=== PATIENT | male | born 1985 | race Caucasian/White ===

== ENCOUNTER 2019-10-20 14:02 | Emergency (ER) | payer OTHER, SELFPAY ==
[2019-10-20 14:14] VITALS: BP 127/85; PULSE 111; RESP 20; TEMP 36.9; O2SAT 100
--- NOTE | 2019-10-20 14:57 | ED.GENADULT ---
HPI - General Adult General Chief complaint: Upper Respiratory Infection Stated complaint: headache/Neck pain/eye pain/fatigue Time Seen by Provider: 10/20/19 14:57 Source: patient and RN notes reviewed Mode of arrival: ambulatory Limitations: no limitations History of Present Illness HPI narrative: 33-year-old male presents with complaints of fatigue, upper respiratory infection, facial congestion, facial pain, clogged ears, cough, and intermittent headaches (not the worst of his life) for the past 14 days. Zyrtec daily, Sudafed, and Flonase with little to no relieg. No facial swelling. Dry cough/intermittent productive cough (yellow phlegm). Nasal congestion and rhinorrhea. No chest pain or shortness of breath. No exacerbating factors. Denies fever or chills. Denies nausea, vomiting, and abdominal pain. Tolerating po intake well. Remains active. Some parts of this dictation were generated by voice recognition software and may contain typographical and/or grammatical inaccuracies. Related Data Home Medications Medication Instructions Recorded Confirmed cetirizine [Zyrtec] 10 mg PO DAILY 10/20/19 10/20/19 fluticasone propionate [Flonase 1 spray INTRANASAL BID 10/20/19 10/20/19 Allergy Relief] pseudoephedrine HCl [Sudafed 12 120 mg PO Q12H 10/20/19 10/20/19 Hour] Allergies Allergy/AdvReac Type Severity Reaction Status Date / Time No Known Allergies Allergy Unknown Verified 10/20/19 14:24 Review of Systems Review of Systems: Narrative: CONSTITUTIONAL: Complains of fatigue. Denies fever, chills, sweats. EYES: Denies visual changes, redness, discharge. ENT: Complains of rhinorrhea, congestion, clogged ears, facial pressure and congestion. Denies otalgia, sore throat. CARDIOVASCULAR: Denies chest pain, palpitations, edema. RESPIRATORY: Denies dyspnea, wheezing. Complains of dry cough/intermittent productive. GASTROINTESTINAL: Denies abdominal pain, nausea, vomiting, diarrhea. GENITOURINARY: Denies dysuria, hematuria, abnormal discharge. SKIN: Denies rash or itching. MUSCULOSKELETAL: Denies acute back pain, joint pain, or myalgia. NEUROLOGIC: Denies numbness or focal weakness. Complains of intermittent RUSSELL. PSYCHIATRIC: Denies anxiety or depression. All systems reviewed & are unremarkable except as noted in HPI and below. [facility] Past Medical History Medical History (Updated 10/21/19 @ 00:01 by Gina Pearce) Bone spur Left heel Surgical History Surgical History (Updated 10/20/19 @ 15:05 by ANDI Calhoun) History of vasectomy Status post left foot surgery Family History Family History Mother Carcinoma of colon Other Family history of malignant neoplasm Social History Social History (Updated 10/20/19 @ 15:06 by ANDI Calhoun) Smoking status: Never smoker Second hand tobacco smoke exposure: No Alcohol intake: current Substance use: never Living arrangements: with family Occupation/Education: occupation Gender identity (if verbalized by the patient): Male Comments At time of signature, agree with nurse past medical, surgical, social, and family history. There is no relevant family history pertinent to the presenting complaint. Exam Narrative: Exam Narrative: GENERAL: This is a well-nourished, well-developed patient, in no apparent distress. Talks in full sentences and ambulates with steady gait without dyspnea. HEAD: normocephalic, atraumatic. EYES: PERRL. Sclera clear/white. Vision is grossly intact. EARS: External ears normal, auditory canals clear and without drainage, TMs normal without perforation. Hearing grossly intact. NOSE: External nose normal with no obvious nasal discharge, nares with mild-moderate redness and enlarged turbinates, LT worse. Clear rhinorrhea. SINUSES: Moderate tenderness upon palpation to maxillary sinus. THROAT: Mucous membranes moist, posterior pharynx with
== END 2019-10-20 15:22 | disposition home or self-care (01) ==
PROVIDERS: Emergency Provider Nurse Practitioner Family
DX: J32.9 Chronic sinusitis, unspecified (principal); Z98.52 Vasectomy status
CPT/HCPCS: 99213; G0463

== ENCOUNTER 2022-04-02 20:31 | Emergency (ER) | payer BC, SELFPAY ==
--- NOTE | ~2022-04-02 | CT_ITS ---
EXAMINATION: CT abdomen pelvis wo con DATE: 04/02/2022 21:14 INDICATION: Left flank pain. TECHNIQUE: Computed tomography (CT) of the abdomen and pelvis was performed without intravenous contr ast. Automated exposure control and iterative reconstruction technique were employed. The dose-length product was 319.79 mGy-cm. COMPARISON: None. FINDINGS: The visualized portions of the lung bases are clear without pneumonia or pleural effusion. The heart size is normal. No pericardial effusion. The liver, spleen, gallbladder, pancreas, and adre nal glands are normal. There is a 3.0 cm cyst in right kidney. There is mild left hydronephrosis and hydroureter. There is a 2 mm stone at left ureterovesicular junction. There are no dilated loops of b owel. The appendix is normal. There are no pathologically enlarged lymph nodes. There is no free intr aperitoneal fluid. There is mild thoracolumbar spondylosis. IMPRESSION: 1. 2 mm stone at left ureterovesicular junction with mild left hydronephrosis and hydroureter. Reviewed, dictated and finalized at location A. IMPRESSION: 1. 2 mm stone at left ureterovesicular junction with mild left hydronephrosis a nd hydroureter.
[2022-04-02 20:48] VITALS: BP 124/84; PULSE 79; RESP 22; O2SAT 100
--- NOTE | 2022-04-02 20:57 | ED.GENADULT ---
HPI - General Adult General Chief complaint: Abdominal Pain Stated complaint: lt flank pain Time Seen by Provider: 04/02/22 20:52 Source: RN notes reviewed History of Present Illness HPI narrative: Patient presents emergency department from home for left-sided flank pain. Patient states pain began suddenly approximately 30 minutes ago. The pain is located in the left flank and radiates to the left side the abdomen described as sharp and stabbing associated with nausea. The patient denies any fevers or chills chest pain shortness of breath vomiting diarrhea or any other symptoms. States he is playing tennis when the pain began he thought he had pulled a muscle in his back and did take a muscle relaxer denies any previous history of kidney stones Related Data Home Medications Medication Instructions Recorded Confirmed cetirizine 10 mg tablet 10 mg PO DAILY PRN 04/03/21 04/03/21 naphazoline 0.025 %-pheniramine 1 drp EACH EYE QID PRN 04/03/21 04/03/21 0.3 % eye drops (Eye Allergy Relief (naphazoline-pheniramine)) oxymetazoline 0.05 % nasal mist 2 spray intranasal Q12H PRN 04/03/21 04/03/21 (Nasal [place] 12 Hour (oxymetazoline)) pseudoephedrine HCl 120 mg 120 mg PO Q12H 04/03/21 04/03/21 tablet,extended release (Nasal Decongestant (pseudoephedrine)) Allergies Allergy/AdvReac Type Severity Reaction Status Date / Time grass pollen Allergy Unknown Verified 04/03/21 09:09 tree and shrub pollen Allergy Unknown Verified 04/03/21 09:10 Review of Systems Review of Systems: Gen.: Denies fevers or chills ENT: Denies congestion Respiratory: Denies shortness of breath or cough CV: Denies chest pain or palpitations GI: See HPI denies burning, urgency, frequency or hematuria Musculoskeletal: Denies back pain or muscle pain Neuro: Denies numbness, tingling, weakness or focal weakness Skin: Denies rash Except as documented, all other systems reviewed and negative [facility] Past Medical History Medical History Bone spur Left heel Seasonal allergies Surgical History Surgical History History of vasectomy Status post left foot surgery Family History Family History Mother Carcinoma of colon Other Family history of malignant neoplasm Social History Social History Smoking status: Never smoker Second hand tobacco smoke exposure: No Alcohol intake: current Substance use: never Gender identity (if verbalized by the patient): Male Exam Narrative: APPEARANCE: Moderate distress from pain, nontoxic, resting in bed EYES: EOMI HEENT: Normocephalic, atraumatic, OMM RESPIRATORY: No respiratory distress Clear to auscultation bilaterally with no rhonchi wheezing or rales. CARDIOVASCULAR: Regular rate and rhythm without murmurs rubs or gallops. ABDOMINAL: Soft, nondistended tender palpation left lower quadrant no tenderness left upper quadrant, right upper quadrant right lower quadrant no rebound or guarding MUSCULOSKELETAl: Moves all extremities. No clubbing, cyanosis or edema. NEURO: Awake and alert. Following commands, speech normal, no focal deficits SKIN:: Warm, dry. No rashes lesions or abrasions PSYCHIATRIC: Normal affect/mood, Course Course Emergency Course: Patient states he is feeling much better at this time Discussed with patient results of workup and diagnosis. Discussed need for follow-up with primary care, proper use of medication, and reasons to return to the emergency department. Patient understands and agrees to current treatment plan Vital Signs Vital signs: Vital Signs Pulse Rate 79 04/02/22 20:48 Respiratory Rate 22 H 04/02/22 20:48 Blood Pressure 124/84 04/02/22 20:48 Pulse Oximetry 100 04/02/22 20:48 Oxygen Delivery Room Air 04/02/22 20:48 Pul
[2022-04-02] MEDS: ONDANSETRON INJ 4 MG/2 ML VIAL IV PUSH (21:30)
[2022-04-02] MEDS: KETOROLAC 30 MG/ML VIAL (*BKC) IV PUSH (21:30)
[2022-04-02] MEDS: SODIUM CHLORIDE 0.9% IV 1,000 ML 999 ML IV CONT (21:31)
[2022-04-02 21:34] LABS: Basophils Percent Auto 0.2 % (0.2-1.2); Eosinophils Absolute Auto 0.2 K/mm3 (0-0.3); Eosinophils Percent Auto 1.5 % (0-4.4); Hematocrit 42.8 % (42.0-52.0); Hemoglobin 14.9 g/dL (14.0-18.0); Immature Granulocyte Absolute 0.04 K/mm3 (0.00-0.031); Immature Granulocyte Percent A 0.4 % (0-0.5); Lymphocytes Absolute Auto 1.97 K/mm3 (0.9-3.2); Lymphocytes Percent Auto 18.8 % (18.3-44.2); Mean Corpuscular HGB Conc 34.8 g/dl (32-36); Mean Corpuscular Hemoglobin 30.4 pg (26-34); Mean Corpuscular Volume 87.3 fl (80-100); Mean Platelet Volume 8.9 fl (7.4-10.4); Monocytes Absolute Auto 0.6 K/mm3 (0.1-0.6); Monocytes Percent Auto 5.4 % (2.6-8.5); Neutrophils Absolute Auto 7.7 K/mm3 (1.3-6.7); Neutrophils Percent Auto 73.7 % (45.5-73.1); Platelet Count Result 309 k/mm3 (150-375); Red Cell Distribution Width 11.9 % (11.5-14.5); White Blood Count 10.5 K/mm3 (4.5-10.0)
[2022-04-02 21:35] LABS: Appearance Urine Clear (Clear); Bilirubin Urine Negative (Negative); Blood Urine 2+ (Negative); Color Urine Yellow (Yellow); Glucose Urine UA Negative (Negative); Ketones Urine Negative (Negative); Leukocyte Esterase Ur Negative LEU/UL (Negative); Nitrate Urine Negative (Negative); Protein Urine 2+ mg/dL (Negative); Specific Grav Ur >= 1.030 (1.001-1.035); Urobilinogen Urine 0.2 mg/dL (<2.0); pH Urine 5.5 (5.0-9.0)
[2022-04-02] MEDS: MORPHINE SULFATE (*CRX) 4 MG/ML INJ IV PUSH (21:42)
[2022-04-02] MEDS: TAMSULOSIN HCL 0.4 MG CAPSULE PO (21:43)
[2022-04-02 21:44] LABS: Alanine Aminotransferase 29 U/L (6-50); Albumin Level 5.1 g/dL (3.5-5.1); Alkaline Phosphatase 71 U/L (38-126); Anion Gap 12 mmol/L (8-16); Aspartate Amino Transferase 28 U/L (17-59); Bilirubin,Total 0.5 mg/dL (0.2-1.3); Blood Urea Nitrogen 17 mg/dL (9-20); Carbon Dioxide 28 mmol/L (22-30); Chloride 101 mmol/L (98-107); Estimated CRCL calculation 59 ml/min; Estimated Glomerular Filt Rate 57; Glucose 131 mg/dL (65-110); Lipase 120 U/L (23-300); Potassium 3.6 mmol/L (3.4-5.0); Sodium 141 mmol/L (137-145)
[2022-04-02 21:49] LABS: Calcium Oxalate Crystals Urine Many /hpf; Mucus Urine Heavy /lpf; Squamous Epithelial Cell Urine Rare /hpf (Few); WBC Urine 0-3 /hpf
[2022-04-02 21:53] LABS: Add Urine Microscopic? YES
[2022-04-02 23:30] VITALS: BP 131/86; PULSE 86; RESP 16; O2SAT 100
== END 2022-04-02 23:30 | disposition home or self-care (01) ==
PROVIDERS: Emergency Provider Emergency Medicine
DX: N13.2 Hydronephrosis with renal and ureteral calculous obstruction (principal)
CPT/HCPCS: 36415; 74176; 80053; 81001; 83690; 85025; 96361; 96374; 96375; 99284; A9270; J1885; J2270; J2405; J7030

== ENCOUNTER 2022-08-28 09:25 | Emergency (ER) | payer OTHER, SELFPAY ==
[2022-08-28] VITALS (10 sets, daily range): BP systolic 122–145; BP diastolic 81–125; PULSE 80; RESP 18; TEMP 36.3; O2SAT 100
--- NOTE | ~2022-08-28 | CT_ITS ---
EXAMINATION: CT abdomen pelvis wo con DATE: 08/28/2022 10:09 INDICATION: Right lower quadrant abdominal pain. Right flank pain. TECHNIQUE: Computed tomography (CT) of the abdomen and pelvis was performed without intravenous contr ast. Automated exposure control and iterative reconstruction technique were employed. The dose-length product was 325.69 mGy-cm. COMPARISON: CT abdomen and pelvis 04/02/2022 FINDINGS: The visualized portions of the lung bases are clear without pneumonia or pleural effusion. The heart size is normal. No pericardial effusion. The liver, gallbladder, spleen, pancreas, adrenal glands, and left kidney are normal. There is a 2.6 cm cyst in right kidney. There is mild right hydro nephrosis and hydroureter. There is a 1 mm stone in distal right ureter. There are no dilated loops o f bowel. The appendix is normal. There are no pathologically enlarged lymph nodes. There is no free i ntraperitoneal fluid. There is mild thoracic spondylosis. IMPRESSION: 1. 1 mm stone in distal right ureter with mild right hydronephrosis and hydroureter. Reviewed, dictated and finalized at location A. NING AND DEVELOPMENT ANALYST IMPRESSION: 1. 1 mm stone in distal right ureter with mild right hydronephrosis and hydrour eter.
--- NOTE | 2022-08-28 09:41 | ED.GENADULT ---
HPI - General Adult General Chief complaint: Abdominal Pain Stated complaint: back pain Time Seen by Provider: 08/28/22 09:26 History of Present Illness HPI narrative: 36-year-old male with history of kidney stones presented to the emerged department for evaluation of back pain and flank pain. Patient states over the last few days he has had some lower back pain. Patient reports that approximately 7 AM this morning he had intense right flank pain that does radiate to his right lower quadrant. Patient states the pain did radiate down to his testicles. Patient does report associated nausea and vomiting did have an episode of diarrhea. Patient denies any other significant past medical history. Patient denies any previous abdominal surgeries. Related Data Home Medications Medication Instructions Recorded Confirmed cetirizine 10 mg tablet 10 mg PO DAILY PRN 04/03/21 04/03/21 naphazoline 0.025 %-pheniramine 1 drp EACH EYE QID PRN 04/03/21 04/03/21 0.3 % eye drops (Eye Allergy Relief (naphazoline-pheniramine)) oxymetazoline 0.05 % nasal mist 2 spray intranasal Q12H PRN 04/03/21 04/03/21 (Nasal [place] 12 Hour (oxymetazoline)) pseudoephedrine HCl 120 mg 120 mg PO Q12H 04/03/21 04/03/21 tablet,extended release (Nasal Decongestant (pseudoephedrine)) Allergies Allergy/AdvReac Type Severity Reaction Status Date / Time grass pollen Allergy Unknown Verified 04/03/21 09:09 tree and shrub pollen Allergy Unknown Verified 04/03/21 09:10 Review of Systems Review of Systems: CONSTITUTIONAL: Denies fever, chills, or sweats. EYES: Denies visual changes, redness, or discharge. ENT: Denies rhinorrhea, congestion, sore throat, or otalgia. CARDIOVASCULAR: Denies chest pain, palpitations, or edema. RESPIRATORY: Denies cough or dyspnea. GASTROINTESTINAL: See HPI GENITOURINARY: Denies dysuria or hematuria. SKIN: Denies rash or itching. MUSCULOSKELETAL: Denies back pain, joint pain, or myalgia. NEUROLOGIC: Denies headache, numbness, or weakness. [facility] Past Medical History Medical History Bone spur Left heel Seasonal allergies Surgical History Surgical History History of vasectomy Status post left foot surgery Family History Family History Mother Carcinoma of colon Other Family history of malignant neoplasm Social History Social History Smoking status: Never smoker Second hand tobacco smoke exposure: No Alcohol intake: current Substance use: never Gender identity (if verbalized by the patient): Male Exam Narrative: APPEARANCE: Uncomfortable appearing due to pain HEAD: normocephalic, atraumatic. EYES: PERRLA/EOMI, conjunctivae clear. NOSE: Normal no drainage THROAT: Pharynx clear, no exudate. NECK: Supple. No adenopathy, no masses. RESPIRATORY: Airway patent, respirations nonlabored. Clear to auscultation bilaterally, no rales, rhonchi, wheezing. CARDIOVASCULAR: Regular rate and rhythm without murmurs rubs or gallops. ABDOMINAL: Right flank pain, right lower quadrant pain with only minimal tenderness to palpation. MUSCULOSKELETAL: Moves all extremities. Strength/ROM intact, No edema, No calf tenderness. NEURO: Alert. Cranial nerves II through XII intact. Grossly intact SKIN: Warm, dry. Normal Color Course Course Emergency Course: Patient was provided IV fluids and IV medications for pain control and for nausea control. UA was ordered to evaluate for hematuria. Baseline labs were ordered. CT scan without contrast was ordered due to concern for ureteral calculi. Differential diagnosis does also include appendicitis, colitis, diverticulitis, UTI. CT scan did show evidence of a 1 mm distal right ureter stone. UA shows no evidence of infection. Patient's pain was initially improve
[2022-08-28] MEDS: ONDANSETRON INJ 4 MG/2 ML VIAL IV PUSH ×2 (09:44→12:04)
[2022-08-28] MEDS: HYDROmorphone HCL INJ (*CRX) 1 MG/ML SYR IV PUSH ×2 (09:45→12:04)
[2022-08-28 09:56] LABS: Basophils Percent Auto 0.4 % (0.2-1.2); Eosinophils Absolute Auto 0.2 K/mm3 (0-0.3); Eosinophils Percent Auto 2.4 % (0-4.4); Hematocrit 46.1 % (42.0-52.0); Immature Granulocyte Absolute 0.03 K/mm3 (0.00-0.031); Immature Granulocyte Percent A 0.4 % (0-0.5); Lymphocytes Absolute Auto 1.67 K/mm3 (0.9-3.2); Lymphocytes Percent Auto 24.8 % (18.3-44.2); Mean Corpuscular HGB Conc 34.7 g/dl (32-36); Mean Corpuscular Hemoglobin 30.4 pg (26-34); Mean Corpuscular Volume 87.6 fl (80-100); Monocytes Absolute Auto 0.6 K/mm3 (0.1-0.6); Monocytes Percent Auto 8.3 % (2.6-8.5); Neutrophils Absolute Auto 4.3 K/mm3 (1.3-6.7); Neutrophils Percent Auto 63.7 % (45.5-73.1); Platelet Count Result 338 k/mm3 (150-375); Red Blood Count 5.26 M/mm3 (4.6-6.20); Red Cell Distribution Width 11.8 % (11.5-14.5); White Blood Count 6.7 K/mm3 (4.5-10.0)
[2022-08-28 10:05] LABS: Alanine Aminotransferase 56 U/L (6-50); Albumin Level 5.4 g/dL (3.5-5.1); Alkaline Phosphatase 73 U/L (38-126); Anion Gap 9 mmol/L (8-16); Aspartate Amino Transferase 32 U/L (17-59); Bilirubin,Total 0.7 mg/dL (0.2-1.3); Blood Urea Nitrogen 18 mg/dL (9-20); Calcium 9.7 mg/dL (8.4-10.2); Carbon Dioxide 30 mmol/L (22-30); Chloride 102 mmol/L (98-107); Estimated CRCL calculation 63 ml/min; Estimated Glomerular Filt Rate > 60; Glucose 124 mg/dL (65-110); Potassium 3.6 mmol/L (3.4-5.0); Sodium 141 mmol/L (137-145)
[2022-08-28] MEDS: SODIUM CHLORIDE 0.9% IV 1,000 ML 999 ML IV CONT (10:37)
[2022-08-28] MEDS: TAMSULOSIN HCL 0.4 MG CAPSULE PO (10:41)
[2022-08-28] MEDS: KETOROLAC 15 MG/ML VIAL (*BKC) IV PUSH (10:41)
[2022-08-28 10:55] LABS: Appearance Urine Slightly Cloudy (Clear); Bilirubin Urine 1+ (Negative); Blood Urine 3+ (Negative); Color Urine Yellow (Yellow); Glucose Urine UA Negative (Negative); Ketones Urine Trace mg/dL (Negative); Leukocyte Esterase Ur Negative LEU/UL (Negative); Nitrate Urine Negative (Negative); Protein Urine 2+ mg/dL (Negative); Specific Grav Ur >= 1.030 (1.001-1.035); Urobilinogen Urine 0.2 mg/dL (<2.0)
[2022-08-28 11:06] LABS: Mucus Urine Heavy /lpf; RBC Urine >75 /hpf (0-2); WBC Urine 0-3 /hpf
[2022-08-28 11:08] LABS: Add Urine Microscopic? YES
== END 2022-08-28 12:40 | disposition home or self-care (01) ==
PROVIDERS: Emergency Provider Emergency Medicine; PCP Family Medicine
DX: N13.2 Hydronephrosis with renal and ureteral calculous obstruction (principal)
CPT/HCPCS: 36415; 74176; 80053; 81001; 85025; 96374; 96375; 96376; 99284; A9270; J1170; J1885; J2405; J7030

== ENCOUNTER 2022-08-29 23:59 | Emergency (ER) | payer OTHER, SELFPAY ==
--- NOTE | ~2022-08-29 | XR_ITS ---
XR abdomen/kub 1V DATE: 08/30/2022 02:10 INDICATION: Right flank pain. Kidney stone. TECHNIQUE: Portable supine AP view COMPARISON: 08/28/2022 CT abdomen pelvis FINDINGS: Prostate calcifications are noted. Cannot exclude residual pinpoint distal right ureteral ureterovesical junction calculus. No evidence of bowel obstruction. No visceromegaly is evident. IMPRESSION: Cannot exclude pinpoint residual distal right ureteral or ureterovesical junction calcifi ed calculus Reviewed, dictated and finalized at [facility]. Reviewed, dictated and finalized at location A. IO TECHNICIAN VIDEO OPERATOR IMPRESSION: Cannot exclude pinpoint residual distal right ureteral or ureterove sical junction calcified calculus
[2022-08-30] VITALS (10 sets, daily range): BP systolic 111–142; BP diastolic 79–93; PULSE 79–81; RESP 16–20; TEMP 36.7; O2SAT 95–100
[2022-08-30] MEDS: HYDROmorphone HCL INJ (*CRX) 1 MG/ML SYR IV PUSH (00:33)
[2022-08-30] MEDS: ONDANSETRON INJ 4 MG/2 ML VIAL IV PUSH (00:34)
--- NOTE | 2022-08-30 00:38 | ED.MALEGU ---
HPI - Male Genitourinary General Chief complaint: Urogenital-Male Stated complaint: flank pain Time Seen by Provider: 08/30/22 00:27 History of Present Illness HPI Narrative: Patient is a 36-year-old male here for evaluation of right flank pain, nausea, vomiting over the past several days. He was seen here upon symptom onset on 08/28 and diagnosed with a 1 mm distal ureteral stone. Patient's pain was controlled and he was discharged with urology follow-up. Patient states that his pain returned today, is severe in nature and is associated with nausea and vomiting. He passed a grain of sand sized piece of material from his urethra yesterday. Related Data Home Medications Medication Instructions Recorded Confirmed cetirizine 10 mg tablet 10 mg PO DAILY PRN 04/03/21 04/03/21 naphazoline 0.025 %-pheniramine 1 drp EACH EYE QID PRN 04/03/21 04/03/21 0.3 % eye drops (Eye Allergy Relief (naphazoline-pheniramine)) oxymetazoline 0.05 % nasal mist 2 spray intranasal Q12H PRN 04/03/21 04/03/21 (Nasal [place] 12 Hour (oxymetazoline)) pseudoephedrine HCl 120 mg 120 mg PO Q12H 04/03/21 04/03/21 tablet,extended release (Nasal Decongestant (pseudoephedrine)) Allergies Allergy/AdvReac Type Severity Reaction Status Date / Time grass pollen Allergy Unknown Verified 04/03/21 09:09 tree and shrub pollen Allergy Unknown Verified 04/03/21 09:10 Review of Systems Review of Systems: Gen.: Denies fevers or chills Eyes: Denies eye pain or visual change ENT: Denies congestion Respiratory: Denies shortness of breath or cough CV: Denies chest pain or palpitations GI: Reports flank pain, nausea and vomiting. : denies burning, urgency, frequency or hematuria Musculoskeletal: Denies back pain or muscle pain Neuro: Denies numbness, tingling, weakness or focal weakness Skin: Denies rash Except as documented, all other systems reviewed and negative PMF Past Medical History Medical History Bone spur Left heel Seasonal allergies Surgical History Surgical History History of vasectomy Status post left foot surgery Family History Family History Mother Carcinoma of colon Other Family history of malignant neoplasm Social History Social History Smoking status: Never smoker Second hand tobacco smoke exposure: No Alcohol intake: current Substance use: never Gender identity (if verbalized by the patient): Male Exam Narrative: APPEARANCE: uncomfortable appearing, writhing in bed Head: Normocephalic and atraumatic. EYES: PERRLA/EOMI, conjunctivae clear NOSE: No nasal drainage EARS: External ear normal in appearance THROAT: Oropharynx is clear. Mucous membranes are moist. NECK: Supple. No adenopathy, no masses. RESPIRATORY: Airway patent, respirations nonlabored. Clear to auscultation bilaterally, no rales, rhonchi, wheezing. CARDIOVASCULAR: Regular rate and rhythm without murmurs, rubs, or gallops. ABDOMINAL: Normoactive bowel sounds. Soft, nontender, nondistended. No rebound tenderness or guarding. MUSCULOSKELETAL: Extremities are warm and well-perfused. Moves all extremities well. No edema. NEURO: Normal speech. No focal neurologic deficits. SKIN: Skin is warm and dry. No rashes. PSYCHIATRIC: Normal affect/mood. Course Vital Signs Vital signs: Vital Signs Temperature 98.0 F 08/30/22 00:01 Pulse Rate 81 08/30/22 00:01 Respiratory Rate 20 08/30/22 00:01 Blood Pressure 142/93 H 08/30/22 00:01 Pulse Oximetry 100 08/30/22 00:01 Oxygen Delivery Room Air 08/30/22 00:01 Temperature 98.0 F 08/30/22 00:01 Pulse Rate 81 08/30/22 00:01 Respiratory Rate 20 08/30/22 00:01 Blood Pressure 142/93 H 08/30/22 00:01 Pulse Oximetry 100 08/30/22 00:0
[2022-08-30 00:42] LABS: Basophils Percent Auto 0.6 % (0.2-1.2); Eosinophils Absolute Auto 0.2 K/mm3 (0-0.3); Eosinophils Percent Auto 2.9 % (0-4.4); Hematocrit 39.7 % (42.0-52.0); Hemoglobin 14.1 g/dL (14.0-18.0); Immature Granulocyte Absolute 0.02 K/mm3 (0.00-0.031); Immature Granulocyte Percent A 0.3 % (0-0.5); Lymphocytes Absolute Auto 2.54 K/mm3 (0.9-3.2); Lymphocytes Percent Auto 39.1 % (18.3-44.2); Mean Corpuscular HGB Conc 35.5 g/dl (32-36); Mean Corpuscular Hemoglobin 31.1 pg (26-34); Mean Corpuscular Volume 87.6 fl (80-100); Monocytes Absolute Auto 0.6 K/mm3 (0.1-0.6); Monocytes Percent Auto 9.7 % (2.6-8.5); Neutrophils Absolute Auto 3.1 K/mm3 (1.3-6.7); Neutrophils Percent Auto 47.4 % (45.5-73.1); Platelet Count Result 315 k/mm3 (150-375); Red Blood Count 4.53 M/mm3 (4.6-6.20); Red Cell Distribution Width 11.8 % (11.5-14.5); White Blood Count 6.5 K/mm3 (4.5-10.0)
[2022-08-30 01:02] LABS: Alanine Aminotransferase 39 U/L (6-50); Albumin Level 4.6 g/dL (3.5-5.1); Alkaline Phosphatase 58 U/L (38-126); Anion Gap 5 mmol/L (8-16); Aspartate Amino Transferase 28 U/L (17-59); Bilirubin,Total 0.4 mg/dL (0.2-1.3); Blood Urea Nitrogen 18 mg/dL (9-20); Calcium 8.9 mg/dL (8.4-10.2); Carbon Dioxide 31 mmol/L (22-30); Chloride 105 mmol/L (98-107); Estimated CRCL calculation 63 ml/min; Estimated Glomerular Filt Rate > 60; Glucose 103 mg/dL (65-110); Potassium 3.6 mmol/L (3.4-5.0); Sodium 141 mmol/L (137-145)
[2022-08-30 02:39] LABS: Appearance Urine Clear (Clear); Bilirubin Urine 1+ (Negative); Blood Urine 2+ (Negative); Color Urine Yellow (Yellow); Glucose Urine UA Negative (Negative); Ketones Urine 1+ mg/dL (Negative); Leukocyte Esterase Ur Negative LEU/UL (Negative); Nitrate Urine Negative (Negative); Protein Urine 1+ mg/dL (Negative); Specific Grav Ur >= 1.030 (1.001-1.035); Urobilinogen Urine 0.2 mg/dL (<2.0)
[2022-08-30 02:44] LABS: Bacteria Urine Trace /hpf; Calcium Oxalate Crystals Urine Present /hpf; Mucus Urine Few /lpf; RBC Urine 21-50 /hpf (0-2)
[2022-08-30 02:47] LABS: Add Urine Microscopic? YES
[2022-08-30] MEDS: KETOROLAC 15 MG/ML VIAL (*BKC) IV PUSH (03:10)
== END 2022-08-30 03:20 | disposition home or self-care (01) ==
PROVIDERS: Emergency Provider Physician Assistant; PCP Family Medicine
DX: N20.0 Calculus of kidney (principal)
CPT/HCPCS: 36415; 74018; 80053; 81001; 85025; 96374; 96375; 99284; J1170; J1885; J2405